=== PATIENT | female | born 1995 ===

== ENCOUNTER 2023-12-30 16:04 | Outpatient (CLI) | payer SELFPAY ==
[~2023-12-30] VITALS: Ht 172.7 cm; Wt 87.7 kg
[2023-12-30 16:04] VITALS: BP 133/88
[2023-12-30 16:52] VITALS: BP 108/54
[2023-12-30 17:12] LABS: HEMATOCRIT 36.8 % (36.0-47.0); MEAN CORPUSCULAR HEMOGLOBIN 31.9 pg (27.0-33.0); MEAN CORPUSCULAR HGB CONC 35.3 g/dl (32.0-36.5); MEAN CORPUSCULAR VOLUME 90.4 fl (80.0-96.0); PLATELET COUNT, AUTOMATED 240 10^3/uL (150-450); RED BLOOD COUNT 4.07 10^6/uL (4.00-5.40); WHITE BLOOD COUNT 9.2 10^3/uL (4.0-10.0)
[2023-12-30 17:25] LABS: INR 0.94; PARTIAL THROMBOPLASTIN TIME 28.3 SECONDS (24.8-34.2); PROTHROMBIN TIME 12.3 SECONDS (12.5-14.5)
[2023-12-30] MEDS ORDERED: PRENTAB9 PO (18:18)
[2023-12-30] MEDS: FLUCONAZOLE 50MG TABLET PO ONE (18:30)
[2023-12-31] MEDS ORDERED: FLUCONAZOLE 50MG TABLET PO SCH (09:00)
== END 2023-12-30 18:40 | disposition home or self-care (01) ==
LOC: M LDO 16:04
PROVIDERS: ATTEND Obstetrics & Gynecology
DX: O46.92 Antepartum hemorrhage, unspecified, second trimester (principal); Z3A.25 25 weeks gestation of pregnancy
CPT/HCPCS: 36415; 59025; 76815; 85027; 85384; 85610; 85730; G0463